=== PATIENT | female | born 1965 | race African-American/Black ===

== ENCOUNTER 2016-11-11 15:07 | Emergency (ER) | payer MEDICAID ==
[2016-11-11 15:49] LABS: BASOPHILS 0.2 % (0.0-2.0); EOSINOPHILS 2.2 % (0-7); HEMATOCRIT 39.3 % (36.0-48.0); HEMOGLOBIN 11.7 g/dL (12-16); IMMATURE GRANULOCYTES 0.2 % (0-5); LYMPHOCYTES 26.5 % (15-50); MCH 27.8 pg (26.0-34.0); MCHC 29.8 g/dL (31.0-37.0); MCV 93.3 fL (80.0-100.0); MEAN PLATELET VOLUME 11.9 fL (7.4-10.4); MONOCYTES 5.5 % (2-11); NEUTROPHILS 65.4 % (40-80); RBC 4.21 10x6/uL (4.00-5.40); RDW 15.6 % (11.5-14.5); WBC 10.8 10x3/uL (4.8-10.8)
[2016-11-11 15:53] LABS: PLATELET COUNT 156 10x3/uL (130-400)
[2016-11-11 16:03] LABS: ALBUMIN 3.2 g/dL (3.4-5.0); ALKALINE PHOSPHATASE 64 U/L (46-116); ALT (SGPT) 31 U/L (10-68); CALC OSMOLALITY 281 mosm/kg (275-300); CALCIUM 8.9 mg/dL (8.5-10.1); CARBON DIOXIDE 28.1 mmol/L (21.0-32.0); CHLORIDE - SERUM 106 mmol/L (98-107); CREATININE - SERUM 0.8 mg/dL (0.6-1.3); POTASSIUM - SERUM 4.2 mmol/L (3.5-5.1); PROTEIN - SERUM 6.6 g/dL (6.4-8.2); SODIUM 141 mmol/L (136-145); UREA NITROGEN 17 mg/dL (7-18); eGFR NON AFRICAN AMERICAN 80 mL/min (90-120)
[2016-11-11 16:04] LABS: GLUCOSE 85 mg/dL (74-106)
[2016-11-11 16:17] LABS: APPEARANCE CLEAR (CLEAR); BILIRUBIN NEGATIVE (NEGATIVE); COLOR YELLOW (YELLOW); GLUCOSE NEGATIVE (NEGATIVE); KETONE NEGATIVE (NEGATIVE); LEUKOCYTE ESTERASE TRACE (NEGATIVE); NITRITE NEGATIVE (NEGATIVE); PROTEIN NEGATIVE (NEGATIVE); UROBILINOGEN NORMAL (NORMAL)
[2016-11-11 16:18] LABS: BACTERIA FEW /hpf (NONE SEEN); EPITHELIAL CELLS 0-5 /hpf (0-5); RED CELLS - URINE OCC /hpf (0-5); WHITE CELLS - URINE OCC /hpf (0-5)
== END 2016-11-11 17:21 | disposition home or self-care (01) ==
LOC: D.ER 15:07
PROVIDERS: Emergency Medicine
DX: K52.9 Noninfective gastroenteritis and colitis, unspecified (principal); F32.9 Major depressive disorder, single episode, unspecified; I10 Essential (primary) hypertension

== ENCOUNTER → 2019-05-29 11:03 | Outpatient (CLI) | payer MEDICAID | END | disposition home or self-care (01) | LOC: D.US 05-26 07:30 | PROVIDERS: ATTEND Nurse Practitioner Family | DX: R10.11 Right upper quadrant pain (principal) ==

== ENCOUNTER 2019-07-24 09:05 | Emergency (ER) | payer MEDICAID ==
[~2019-07-24] VITALS: Ht 160 cm; Wt 140.9 kg
[2019-07-24 09:07] VITALS: Ht 160 cm; Wt 140.9 kg
[2019-07-24] MEDS ORDERED: KLONOPIN1 MG PO (09:38)
[2019-07-24] MEDS ORDERED: LOPRESSOR25 MG PO (09:39)
[2019-07-24] MEDS ORDERED: NORVASC5 MG PO (09:39)
[2019-07-24] MEDS ORDERED: ZOLOFT100 MG (09:39)
[2019-07-24] MEDS ORDERED: LIPITOR80 MG (09:39)
[2019-07-24] MEDS ORDERED: NEURONTIN 300300 MG (09:40)
[2019-07-24 09:51] LABS: BASOPHILS 0.4 % (0-2); EOSINOPHILS 5.5 % (0-7); HEMOGLOBIN 12.2 g/dL (12-16); IMMATURE GRANULOCYTES 0.2 % (0-5); LYMPHOCYTES 16.5 % (15-50); MCH 28.4 pg (26.0-34.0); MCHC 32.1 g/dL (31.0-37.0); MCV 88.6 fL (80.0-100.0); MEAN PLATELET VOLUME 10.4 fL (7.4-10.4); MONOCYTES 4.2 % (2-11); NEUTROPHILS 73.2 % (40-80); PLATELET COUNT 220 10x3/uL (130-400); RBC 4.29 10x6/uL (4.00-5.40); RDW 15.1 % (11.5-14.5); WBC 11.2 10x3/uL (4.8-10.8)
[2019-07-24 10:07] LABS: APTT 29.6 SECONDS (22.8-39.4); INR 1.08 (0.85-1.17); PROTIME 13.5 SECONDS (11.6-15.0)
[2019-07-24 10:12] LABS: ALBUMIN 3.7 g/dL (3.4-5.0); ALKALINE PHOSPHATASE 76 U/L (46-116); ALT (SGPT) 21 U/L (10-68); BILIRUBIN - TOTAL 0.43 mg/dL (0.2-1.3); CALC OSMOLALITY 283 mosm/kg (275-300); CALCIUM 9.4 mg/dL (8.5-10.1); CARBON DIOXIDE 31.1 mmol/L (21.0-32.0); CHLORIDE - SERUM 107 mmol/L (98-107); CREATININE - SERUM 0.8 mg/dL (0.6-1.3); GLUCOSE 84 mg/dL (74-106); POTASSIUM - SERUM 3.9 mmol/L (3.5-5.1); PROTEIN - SERUM 7.2 g/dL (6.4-8.2); SODIUM 142 mmol/L (136-145); UREA NITROGEN 18 mg/dL (7-18); eGFR NON AFRICAN AMERICAN 79 mL/min (90-120)
[2019-07-24 10:19] LABS: CKMB 1.4 U/L (0.0-3.6); CREATINE KINASE 227 UL (21-215); PRO BNP 69 pg/mL (0-125); TROPONIN-I < 0.017 ng/mL (0.000-0.060)
[2019-07-24] MEDS ORDERED: GLUCOTROL 5 MG T5 MG PO (10:20)
[2019-07-24] MEDS ORDERED: GLUCOPHAGE500 MG PO ×2 (10:21→10:54)
[2019-07-24 10:30] LABS: APPEARANCE CLEAR (CLEAR); COLOR STRAW (YELLOW); SPECIFIC GRAVITY 1.015 (1.005-1.020)
[2019-07-24 10:31] LABS: BILIRUBIN NEGATIVE (NEGATIVE); GLUCOSE NEGATIVE (NEGATIVE); KETONE NEGATIVE (NEGATIVE); NITRITE NEGATIVE (NEGATIVE); PROTEIN NEGATIVE (NEGATIVE); UROBILINOGEN NORMAL (NORMAL)
[2019-07-24 13:59] VITALS: BP 130/76
== END 2019-07-24 17:15 | disposition home or self-care (01) ==
LOC: D.ER 09:05
PROVIDERS: Emergency Medicine
DX: E11.649 Type 2 diabetes mellitus with hypoglycemia without coma (principal); J40 Bronchitis, not specified as acute or chronic

== ENCOUNTER 2019-08-05 14:36 | Emergency (ER) | payer MEDICAID ==
[~2019-08-05] VITALS: Ht 160 cm; Wt 121.4 kg
[~2019-08-05 14:36] MED LIST: GLUCOPHAGE500 MG PO; GLUCOTROL 5 MG T5 MG PO; KLONOPIN1 MG PO; LIPITOR80 MG; LOPRESSOR25 MG PO; NEURONTIN 300300 MG; NORVASC5 MG PO; ZOLOFT100 MG
[2019-08-05 14:44] VITALS: Ht 160 cm; Wt 121.4 kg
[2019-08-05] MEDS ORDERED: PENICILLIN V P500 MG PO (15:56)
[2019-08-05 16:04] LABS: BASOPHILS 0.3 % (0-2); EOSINOPHILS 6.7 % (0-7); HEMATOCRIT 38.3 % (36.0-48.0); HEMOGLOBIN 12.4 g/dL (12-16); IMMATURE GRANULOCYTES 0.2 % (0-5); LYMPHOCYTES 20.3 % (15-50); MCH 28.8 pg (26.0-34.0); MCHC 32.4 g/dL (31.0-37.0); MCV 88.9 fL (80.0-100.0); MONOCYTES 5.2 % (2-11); NEUTROPHILS 67.3 % (40-80); PLATELET COUNT 236 10x3/uL (130-400); RBC 4.31 10x6/uL (4.00-5.40); RDW 14.9 % (11.5-14.5); WBC 12.4 10x3/uL (4.8-10.8)
[2019-08-05 16:29] LABS: ALBUMIN 3.6 g/dL (3.4-5.0); ALKALINE PHOSPHATASE 73 U/L (46-116); ALT (SGPT) 25 U/L (10-68); BILIRUBIN - TOTAL 0.24 mg/dL (0.2-1.3); CALC OSMOLALITY 290 mosm/kg (275-300); CALCIUM 8.9 mg/dL (8.5-10.1); CARBON DIOXIDE 27.7 mmol/L (21.0-32.0); CHLORIDE - SERUM 108 mmol/L (98-107); CREATININE - SERUM 0.8 mg/dL (0.6-1.3); GLUCOSE 79 mg/dL (74-106); POTASSIUM - SERUM 3.5 mmol/L (3.5-5.1); SODIUM 147 mmol/L (136-145); UREA NITROGEN 13 mg/dL (7-18); eGFR NON AFRICAN AMERICAN 79 mL/min (90-120)
[2019-08-05 16:42] VITALS: BP 126/95
== END 2019-08-05 16:51 | disposition home or self-care (01) ==
LOC: D.ER 14:36
PROVIDERS: Family Medicine
DX: K04.7 Periapical abscess without sinus (principal); E11.9 Type 2 diabetes mellitus without complications; I10 Essential (primary) hypertension; J44.9 Chronic obstructive pulmonary disease, unspecified; F32.9 Major depressive disorder, single episode, unspecified

== ENCOUNTER 2021-04-19 20:34 | Emergency (ER) | payer MEDICARE ==
[~2021-04-19] VITALS: Ht 160 cm; Wt 139.1 kg
[~2021-04-19 20:34] MED LIST changes: +PENICILLIN V P500 MG PO
[2021-04-19 20:48] VITALS: Ht 160 cm; Wt 139.1 kg
[2021-04-19 21:55] LABS: BASOPHILS 0.3 % (0-2); EOSINOPHILS 6.5 % (0-7); HEMATOCRIT 39.6 % (36.0-48.0); HEMOGLOBIN 12.8 g/dL (12-16); LYMPHOCYTES 12.1 % (15-50); MCH 27.3 pg (26.0-34.0); MCHC 32.2 g/dL (31.0-37.0); MCV 84.7 fL (80.0-100.0); MEAN PLATELET VOLUME 9.4 fL (7.4-10.4); MONOCYTES 5.6 % (2-11); NEUTROPHILS 75.5 % (40-80); PLATELET COUNT 219 10x3/uL (130-400); RBC 4.67 10x6/uL (4.00-5.40); RDW 16.1 % (11.5-14.5); WBC 8.5 10x3/uL (4.8-10.8)
[2021-04-19 22:03] LABS: CALC OSMOLALITY 287 mosm/kg (275-300); CARBON DIOXIDE 30.7 mmol/L (21.0-32.0); CHLORIDE - SERUM 106 mmol/L (98-107); CREATININE - SERUM 1.2 mg/dL (0.6-1.3); POTASSIUM - SERUM 3.8 mmol/L (3.5-5.1); SODIUM 143 mmol/L (136-145); UREA NITROGEN 17 mg/dL (7-18); eGFR NON AFRICAN AMERICAN 49 mL/min (90-120)
[2021-04-19 22:07] LABS: GLUCOSE 114 mg/dL (74-106)
[2021-04-19] MEDS ORDERED: DOXYCYCLINE HY100 M2 PO (22:13)
[2021-04-19] MEDS ORDERED: VENTOLIN HFA [SP8 GM INH (22:13)
[2021-04-19 22:20] LABS: ALKALINE PHOSPHATASE 89 U/L (30-120); ALT (SGPT) 37 U/L (10-68); C-REACTIVE PROTEIN 1.1 mg/dL (0.0-0.9); PRO BNP 30 pg/mL (0-125); PROTEIN - SERUM 7.5 g/dL (6.4-8.2); THYROID STIMULATING HORMONE 0.87 uIU/mL (0.36-3.74); TROPONIN-I < 0.017 ng/mL (0.000-0.060)
[2021-04-20 01:15] VITALS: BP 142/81
== END 2021-04-20 01:27 | disposition home or self-care (01) ==
LOC: D.ER 20:34
PROVIDERS: Family Medicine
DX: J20.9 Acute bronchitis, unspecified (principal); E11.9 Type 2 diabetes mellitus without complications; I10 Essential (primary) hypertension; Z79.84 Long term (current) use of oral hypoglycemic drugs; J44.9 Chronic obstructive pulmonary disease, unspecified